=== PATIENT | male | born 1990 | race Caucasian/White ===

== ENCOUNTER 2016-12-10 06:30 | Emergency (ER) | payer OTHER ==
[~2016-12-10] VITALS: Ht 167.6 cm; Wt 73.0 kg
[2016-12-10 06:45] VITALS: BP 133/87
[2016-12-10] MEDS ORDERED: AZITHROMYCIN 250 MG TABLET ONE (07:45)
[2016-12-10] MEDS ORDERED: CEFTRIAXONE 250 MG ONE (07:45)
[2016-12-10] MEDS ORDERED: CEFTRIAXONE 250 MG IM ONE (08:00)
[2016-12-10] MEDS ORDERED: AZITHROMYCIN 500 MG TABLET PO ONE (08:00)
== END 2016-12-10 08:32 | disposition home or self-care (01) ==
LOC: ED 07:16
DX: A56.8 Sexually transmitted chlamydial infection of other sites (principal); J45.909 Unspecified asthma, uncomplicated
CPT/HCPCS: 96372; 99283; J0696

== ENCOUNTER 2017-07-31 17:19 | Emergency (ER) | payer OTHER ==
[~2017-07-31] VITALS: Ht 172.7 cm; Wt 75.0 kg
[2017-07-31] MEDS ORDERED: DIPHENHYDRAMINE 25 MG CAPSULE PO ONE (17:30)
[2017-07-31] MEDS ORDERED: FAMOTIDINE 20 MG TABLET PO ONE (17:30)
[2017-07-31] MEDS ORDERED: methylPREDNISolone SOD SUCC 125 MG/2 ML ONE (17:31)
[2017-07-31] MEDS ORDERED: EPINEPHRINE 1 MG/ML, 1ML ONE (17:31)
[2017-07-31] MEDS ORDERED: DIPHENHYDRAMINE 50 MG/ML, 1ML ONE (17:31)
[2017-07-31] MEDS ORDERED: FAMOTIDINE 20 MG/2 ML ONE (17:31)
[2017-07-31] MEDS ORDERED: FAMOTIDINE 20 MG/2 ML IVPush ONE (18:00)
[2017-07-31] MEDS ORDERED: methylPREDNISolone SOD SUCC 125 MG/2 ML IVPush ONE (18:00)
[2017-07-31] MEDS ORDERED: EPINEPHRINE 1 MG/ML, 1ML IM ONE (18:00)
[2017-07-31] MEDS ORDERED: DIPHENHYDRAMINE 50 MG/ML, 1ML IVPush ONE (18:00)
[2017-07-31 18:54] VITALS: BP 115/63
== END 2017-07-31 19:38 | disposition home or self-care (01) ==
LOC: ED 19:15
DX: T78.40XA Allergy, unspecified, initial encounter (principal); L50.9 Urticaria, unspecified; J45.909 Unspecified asthma, uncomplicated; Z87.891 Personal history of nicotine dependence; X58.XXXA Exposure to other specified factors, initial encounter
CPT/HCPCS: 96372; 96374; 96375; 99284; J0171; J1200; J2930; S0028